=== PATIENT | female | born 1970 | race Caucasian/White ===

== ENCOUNTER 2021-12-02 09:50 | Emergency (ER) | payer OTHER | END 2021-12-02 11:49 | disposition home or self-care (01) | LOC: MW.ED 09:50 | DX: S83.411A Sprain of medial collateral ligament of right knee, initial encounter (principal); M54.50 Low back pain, unspecified; Z88.6 Allergy status to analgesic agent; Z88.5 Allergy status to narcotic agent; W00.9XXA Unspecified fall due to ice and snow, initial encounter | CPT/HCPCS: 73562-26-RT; 73562-RT; 99283 ==